=== PATIENT | female | born 1945 | race Caucasian/White ===

== ENCOUNTER 2016-08-23 21:41 | Inpatient (IN) | payer MEDICARE ==
--- NOTE | ~2016-08-23 | DS ---
Discharge Summary [id number] [place]. [address] NAME: DARRELL COLON : 41 STATUS : DIS IN PAT#: [id number] AGE: 70 ADM/REG DATE : 08/23/16 MR#: [id number] REPORT SERV DATE: 08/31/16 DICTATED BY: BERNARD GALVIN SCOT DATE: 08/30/16 REPORT STATUS : Draft TRANSCRIBED BY: MODL DATE: 08/30/16 ADMISSION DATE: 08/23/2016 DISCHARGE DATE: 08/30/2016 DISCHARGE DIAGNOSES: 1. Acute diastolic heart failure with ejection fraction of 50%. 2. Anemia of iron deficiency and a component of acute blood loss with history of recent uterine bleeding and recent hysteroscopy on 07/31/2016. 3. Bilateral pleural effusions, resolving. 4. Hypoxemia, nocturnal, likely obstructive sleep apnea. 5. Acute kidney injury on chronic kidney disease, resolving, most recent creatinine 1.54. 6. Diabetes type 2, hemoglobin A1c 8.4. 7. History of hypertension. 8. Recent cholecystectomy, also on 07/31/2016. DISCHARGE MEDICATIONS: Aspirin 81 mg daily, Coreg 6.25 mg p.o. twice a day, glipizide 10 mg p.o. twice a day at breakfast and supper, Glucophage 1000 mg p.o. with breakfast and supper, Imdur 30 mg daily, lisinopril 2.5 mg daily, Nexium 20 mg daily, MiraLAX one packet daily, potassium chloride sustained release 10 mEq daily, Demadex 10 mg p.o. daily, vitamin E, vitamin B one tablet [id number] daily, hydralazine 25 mg three times a day, Prolia 60 mg subcutaneously every six months. HISTORY OF PRESENT ILLNESS: A 70-year-old female who presented with swelling and high blood pressure. Please see the initial H and P of Dr. Manny Galaviz. The patient is admitted to the Hospitalist Service for further evaluation and treatment. The patient was initially started on aggressive IV diuresis. Lab work was ordered and followed. She was given medications to control her blood pressure. CONSULTANTS DURING THIS ADMISSION: Included Cardiology, Dr. Zepeda. PROCEDURES AND IMAGING DURING THIS ADMISSION: Include an overnight oximetry test showing severe nocturnal hypoxemia on room air. An echocardiogram showing an ejection fraction 50%, mild left ventricular diastolic dysfunction, mild right ventricular enlargement. Hepatic ultrasound showing gallbladder removed, common bile duct normal. Liver is mildly enlarged, otherwise normal,and small right pleural effusion noted HOSPITAL COURSE: The patient was as stated given aggressive IV diuresis with Bumex and her volume overload began to improve. She did have some difficulties with hypokalemia which was replaced as needed. She was found to be quite anemic as well on presentation secondary to her chronic uterine bleeding and in recent procedure. She was given approximately six days of IV iron infusions during this hospital admission as well and her H and H has slowly risen each day. She was started on Coreg and VIOLET inhibitor and has tolerated this addition okay. Her creatinine was followed closely and began to climb slightly on 08/27/2016 and her Bumex was discontinued the following day and lab work was followed closely as her creatinine did climb to 1.79. The did plateau to 1.56 and she was given 10 mg of torsemide which she will continue forward. Given the findings of the overnight oximetry, she was placed and Discharge Summary [address] [address] NAME: DARRELL COLON : 41 STATUS : DIS IN PAT#: [id number] AGE: 70 ADM/REG DATE : 08/23/16 MR#: [id number] REPORT SERV DATE: 08/31/16 DICTATED BY: BERNARD GALVIN DATE: 08/30/16 REPORT STATUS : Draft TRANSCRIBED BY: NORA DATE: 08/30/16 continued on oxygen and will have that at discharge as well. The patient continued to improve, was able to ambulate and mobilize in the room and heart failure education team has seen the patient during this hospitalization. Cardiology felt the patient safe for discharge as well, and she was discharged to home with home health on 08/30/2016 with the above medication regimen and prescriptions and home health, and she has been instructed to follow up with her primary care, Dr. Monsalve, in the next seven days to recheck some lab work including a BMP and CBC and further discuss her diabetic medicines as well. Her H and H upon discharge 7.7 and 27.4, creatinine 1.54. She has questions extensively answered at bedside with both patient and and they are in agreement. Please note, greater 30 minutes was spent on this discharge for medication teaching, followup planning, and further disposition. CSC/MODL Bernard Galvin NP / [id number] CC: Roderick Addison M.D.
--- NOTE | ~2016-08-23 | PUL ---
[facility] [address] [place]. [address] NAME: DARRELL COLON : 41 STATUS : ADM IN PAT#: [id number] AGE: 70 ADM/REG DATE : 08/23/16 MR#: [id number] REPORT SERV DATE: 08/28/16 DICTATED BY: CASH QUIROS IV DATE: 08/27/16 REPORT STATUS : Draft TRANSCRIBED BY: MODL DATE: 08/27/16 PULMONARY FUNCTION TEST OVERNIGHT OXIMETRY Study was performed initially on room air. The patient was placed on supplemental oxygen at 2 L because of persistently low oxygen saturations. 6 hours and 2 minutes of data are available for review. The mean oxygen saturation for the study was 94.9%. The lowest recorded saturation was 78% and this occurred prior to the initiation of supplemental oxygen. The patient spent 36 minutes and 20 seconds with oxygen saturations less than 88%. After supplemental oxygen was provided, there were transient periods of oxygen desaturations, which appeared to be secondary to motion artifact or poor pulse pickup while the patient is on supplemental oxygen. Prior to the initiation of supplemental oxygen, there were periods of oxygen saturation, variation of sawtooth pattern that varied by more than 4%. IMPRESSION: Severe nocturnal hypoxemia on room air. Prior to the initiation of supplemental oxygen, there was a background pattern that would be consistent with obstructive sleep apnea. This pattern appeared to disappear with the initiation of supplemental oxygen with the remainder of the desaturations appearing to be secondary to motion artifact or poor pulse pickup. I would suggest continued use of supplemental oxygen at 2 L/minute. I would suggest formal polysomnography if clinically indicated. HALEY/NORA Cash Quiros IV, M.D. / [id number] CC: MD Kit Pathak M.D.
--- NOTE | ~2016-08-23 | CN ---
Consultation Report [facility] [address] [place]. [address] NAME: DARRELL COLON : 41 STATUS : ADM IN [facility]#: [id number] AGE: 70 ADM/REG DATE : 08/23/16 MR#: [id number] REPORT SERV DATE: 08/25/16 DICTATED BY: TAO OTERO DATE: 08/25/16 REPORT STATUS : Draft TRANSCRIBED BY: MODL DATE: 08/25/16 CARDIOVASCULAR CONSULTATION DATE OF CONSULTATION: This cardiovascular consultation requested by Dr. Earl Frederick. INDICATION: Congestive heart failure. HISTORY OF PRESENT ILLNESS: Ms. Colon is a 70-year-old woman with a history of hypertension and type 2 diabetes. She underwent cholecystectomy several weeks ago. She is admitted to [facility] with worsening symptoms of dyspnea and volume overload and is found to be in acute congestive heart failure. BNP on initial presentation was almost 1500. The patient's dyspnea has somewhat improved over the last two days in the hospital. She still has significant edema. She has not had any chest pain. No prior cardiac history. No previous history congestive heart failure. PAST MEDICAL HISTORY: 1. Hypertension. 2. Type 2 diabetes. 3. Gastroesophageal reflux disease. 4. Status post recent cholecystectomy. 5. Status post D and C. SOCIAL HISTORY: She does not smoke or drink alcohol. FAMILY HISTORY: There is no family history of early coronary artery disease. ALLERGIES: INCLUDE MORPHINE. HOME MEDICATIONS: Aspirin 81 mg daily, Prolia, Nexium 20 mg daily, Glucotrol, glipizide, hydralazine 25 mg three times a day, Imdur 30 mg daily, Prinivil 10 mg twice a day, metformin. PHYSICAL EXAMINATION: VITAL SIGNS: Blood pressure 144/64, heart rate of 78, respiratory rate of 14. GENERAL: Comfortable in no acute distress. HEENT: Anicteric. No xanthelasma. Lips without cyanosis. NECK: No JVD. Carotids 2+ and symmetric. No carotid bruits. LUNGS: CTA bilaterally. No wheezes or rhonchi. No accessory muscle use. COR: RRR. Normally placed PMI. Normal S1 and S2. No murmurs, rubs or gallops. ABD: Soft, nontender, nondistended. Normal bowel sounds. No abdominal bruits. EXT: No clubbing, cyanosis or edema 2+ and symmetric distal pulses. SKIN: Warm. Dry. No venous stasis changes. Consultation Report [place] [address] [place]. [address] NAME: DARRELL COLON : 41 STATUS : ADM IN PAT#: [id number] AGE: 70 ADM/REG DATE : 08/23/16 MR#: [id number] REPORT SERV DATE: 08/25/16 DICTATED BY: TAO OTERO DATE: 08/25/16 REPORT STATUS : Draft TRANSCRIBED BY: NORA DATE: 08/25/16 MS: No kyphosis. NEURO/PSYCH: Oriented x3. No anxiety or depression. LABORATORY STUDIES: Creatinine of 1.1. Hematocrit of 7. BNP initially 1500. EKG: A 12-lead EKG shows the sinus rhythm, 89 beats per minute. Right bundle-branch block pattern noted. Nonspecific T-wave abnormalities noted. Echocardiogram by my personal review on 08/25/2016 shows low normal left ventricular systolic function with EF 50%. There is evidence of diastolic dysfunction. There was mild right-sided chamber enlargement. IMPRESSION: This is a 70-year-old woman with acute diastolic congestive heart failure as a new diagnosis. We will work on blood pressure control. I agree with IV diuresis. We will monitor electrolytes closely. BELINDA/NORA Tao Otero M.D. / [id number] CC: MD Kit Pathak M.D.
--- NOTE | ~2016-08-23 | HP ---
History And Physical [id number] [place]. [address] NAME: DARRELL COLON : 41 STATUS : ADM IN [facility]#: [id number] AGE: 70 ADM/REG DATE : 08/23/16 MR#: [id number] REPORT SERV DATE: 08/24/16 DICTATED BY: MANNY VILLA DATE: 08/23/16 REPORT STATUS : Draft TRANSCRIBED BY: MODL DATE: 08/23/16 DATE OF ADMISSION: 08/23/2016 CHIEF COMPLAINT: Swelling all over and high blood pressure. HISTORY OF PRESENT ILLNESS: This is a 70-year-old female, who was recently discharged from this hospital on 08/15/2016 after cholecystectomy and D and C done at the same time, returns to the emergency room at [facility] with the above- mentioned complaint. History is obtained from the patient, her who is at bedside, and reviewing data available on the [facility] system. According to Ms. Colon and her , after she went home on 08/15/2016 following the surgery mentioned above, she started having swelling in her body all over, especially both her lower extremities and abdominal area. She also had progressively worsening shortness of breath and dyspnea with exertion. In the last few days, her dyspnea with exertion was quite profound even with minimal exertion. They finally decided to come to the emergency room to be evaluated. In the emergency room, she had hypertensive urgency with a pressure of 201/83, volume overload with an elevated BNP, and also hyperglycemia. Her EKG showed normal sinus rhythm. Chest x-ray showed bilateral small pleural effusions. She was given clonidine, lisinopril, and Lasix in the ER, and Hospitalist Service is asked to admit her for further evaluation and treatment. At the time of my evaluation, she denied any chest pain, palpitations, or orthopnea. She had no cough productive of any sputum. Denied any hemoptysis, night sweats, or weight loss. She has had no falls or loss of consciousness. No recent history of fevers, chills, nausea, vomiting, diarrhea. She did have a history of recent hysteroscopy and D and C for dysfunctional uterine bleeding, but since then, she had been placed on Prolia, and her bleeding has stopped. She is being followed by Dr. Day. She has had no other history of hematemesis, hematochezia, or hematuria. No other history of recent travel or exposures other than those mentioned above. PAST MEDICAL HISTORY: Significant for history of dysfunctional uterine bleeding and chronic anemia, history of hysteroscopy and D and C done by Dr. Day, history of cholecystectomy for gangrenous cholecystitis both done recently, and the patient was discharged on 08/15/2016. The patient has history of hypertension, diabetes mellitus, hypercholesteremia, gastroesophageal reflux disease, chronic sinusitis. She also has chronic anemia as well. SOCIAL HISTORY: She does not smoke, drink, or use recreational drugs. FAMILY HISTORY: Noncontributory. MEDICATIONS: Her medications at home were reviewed by me in the chart today and reordered by me. History And Physical [address] [address] NAME: DARRELL COLON : 41 STATUS : ADM IN [facility]#: [id number] AGE: 70 ADM/REG DATE : 08/23/16 MR#: [id number] REPORT SERV DATE: 08/24/16 DICTATED BY: MANNY VILLA DATE: 08/23/16 REPORT STATUS : Draft TRANSCRIBED BY: NORA DATE: 08/23/16 REVIEW OF SYSTEMS: As in history of present illness. All other systems were reviewed in detail and quite unremarkable. PHYSICAL EXAMINATION: GENERAL: This is a pleasant 70-year-old, not in any acute distress. HEENT: Her head is atraumatic, normocephalic. She is alert, awake, oriented to time, place, and person. Pupils are equal, reacting to light and accommodating. External ocular muscles are intact. Membranes are moist and pink. Sclerae are nonicteric. NECK: Supple with no jugular venous distention, lymphadenopathy, or thyromegaly. LUNGS: Auscultation of her lungs revealed few crackles in the bases, otherwise without any expiratory wheezes. HEART: Auscultation of her heart revealed normal rate and rhythm with no murmurs, rubs, or gallops appreciated. ABDOMEN: Soft. There is edema. Bowel sounds present. No organomegaly. EXTREMITIES: Showed no cyanosis or clubbing. There is bilateral pitting lower extremity edema. NEUROLOGIC: Grossly intact. No focal sensory or motor deficits. She was able to move all four extremities. VITAL SIGNS: Her vital signs today showed a temperature of 98.3, pulse 86, respirations 24 a minute, blood pressure was 201/83, oxygen saturations were 97% on 2 L by nasal cannula. LABORATORY DATA: Reviewed on the [facility] system showed sodium of 141, potassium 4.1, chloride 104, and CO2 of 25. BUN was 16 with a creatinine of 1.16. Her blood glucose was 176. Troponin today was 0.02. BNP was elevated at 1456.3. CBC revealed a white blood cell count of 7600; hemoglobin was 7.4; hematocrit 26.0, this was 7.1 on 08/10/2016 and 24.4 on the same day. This has been stable for quite a while. Her MCV is 68.4 and platelet count is 328,000. Her PTT today was 40.6, prothrombin time was 15. INR was 0.8. Urinalysis was grossly unremarkable. Films of the chest x-ray were reviewed by me on the PACS today and interpreted by me. Per my interpretation, there is normal bony architecture with cardiomegaly. There are no lobar consolidations or infiltrates, but there are small bilateral pleural effusions seen. A 12-lead EKG done in emergency room was reviewed and interpreted by me. There is normal sinus rhythm with a rate of [address] changes. There is right bundle-branch block. Again, initially upon presentation, her blood pressure was 201/83. After interventions in the ER, it had come down to 189/69. IMPRESSION: 1. Hypertensive urgency. 2. Volume overload. 3. Diabetes mellitus with hyperglycemia. 4. Iron deficiency anemia secondary to dysfunctional uterine bleeding. 5. Gastroesophageal reflux disease. 6. Hypercholesterolemia. 7. Chronic sinusitis. 8. Right bundle-branch block. 9. Bilateral small pleural effusions. History And Physical [address] [address] NAME: DARRELL COLON : 41 STATUS : ADM IN [facility]#: [id number] AGE: 70 ADM/REG DATE : 08/23/16 MR#: [id number] REPORT SERV DATE: 08/24/16 DICTATED BY: MANNY VILLA DATE: 08/23/16 REPORT STATUS : Draft TRANSCRIBED BY: MODL DATE: 08/23/16 10.History of recent cholecystectomy and hysteroscopy with D and C. PLAN: We will admit Ms. Colon to the Hospitalist Service with telemetry for close monitoring. We will start her on IV diuretics, follow daily outputs, weights, and check an echocardiogram in the morning. We will also establish blood pressure control with intravenous hydralazine given on an as needed basis along with intravenous Bumex as well. She was given 0.2 mg of clonidine in the ER along with lisinopril 20 mg and Lasix IV. She has responded well and has had good output so far. For her blood sugar control, we will start her on NovoLog given subcutaneously per sliding scale and check her A1c as well. We will also check her TSH. She will be placed on unfractionated heparin for DVT prophylaxis while here. I have discussed the above plans with the patient and her . Questions were answered and they are agreeable to the above recommendations. Hospitalist Service will be following her during her stay here. /NORA Manny Villa M.D. / [id number] CC: Roderick Gong M.D.
[2016-08-23 17:25] LABS: BASOPHILS 0.5 %; BASOPHILS ABSOLUTE 0.04 10/3/uL (0.0-0.16); EOSINOPHILS 5.1 %; EOSINOPHILS ABSOLUTE 0.39 10/3/uL (0.0-0.53); ER CBC TAT 0 Hrs 07 Mins; HEMOGLOBIN 7.4 g/dL (12.0-16.0); IMMATURE GRANULOCYTES 0.4 %; IMMATURE GRANULOCYTES ABSOLUTE 0.03 10/3/uL (0.0-0.11); LYMPHOCYTES 19.5 %; LYMPHOCYTES ABSOLUTE 1.48 10/3/uL (0.67-4.30); MEAN CORPUS HGB CONC 28.5 g/dL (32.0-36.0); MEAN CORPUSCULAR HEMOGLOB 19.5 pg (26.0-34.0); MEAN CORPUSCULAR VOLUME 68.4 fL (80-100); MEAN PLATELET VOLUME 9.7 fL (9.2-13.0); MONOCYTES 11.1 %; MONOCYTES ABSOLUTE 0.84 10/3/uL (0.21-1.20); NEUTROPHILS 63.4 %; RBC DISTRIBUTION WIDTH 19.1 % (12.0-16.0); WHITE BLOOD CELLS 7.6 10/3/uL (4.5-10.5)
[2016-08-23 17:26] LABS: MANUAL DIFF NO %; PLATELET COUNT 328 10/3/uL (150-400)
[2016-08-23 17:31] LABS: INTERNATIONAL NORMAL RATI 1.2 UNITS (-)
[2016-08-23 17:32] LABS: PARTIAL THROMBO TIME 40.6 SEC (22.5-37.2)
[2016-08-23 17:43] LABS: BUN (BLOOD UREA NITROGEN) 16 MG/DL (6-23); CALCIUM, SERUM 8.5 MG/DL (8.5-10.4); CHEST PAIN PROFILE TAT 0 Hrs 25 Mins; CHLORIDE, SERUM 104 MMOL/L (96-112); CO2 (CARBON DIOXIDE) 25 MMOL/L (24-34); CREATININE 1.16 MG/DL (0.55-1.02); GFR AFRICAN AMERICAN 54 ML/MIN (>=60); GFR NON AFRICAN AMERICAN 47 ML/MIN (>=60); POTASSIUM, SERUM 4.1 MMOL/L (3.5-5.3); SODIUM, SERUM 141 MMOL/L (135-148); TROPONIN I <0.02 NG/ML (<0.05)
[2016-08-23 17:44] LABS: GLUCOSE, SERUM 176 MG/DL (60-99)
[2016-08-23 20:55] LABS: ASCORBIC ACID (UR NOT ORDER) NEG (NEG); BILIRUBIN, URINE NEGATIVE (NEG); ER URINALYSIS TAT 0 Hrs 25 Mins; KETONE, URINE NEGATIVE (NEG); LEUKOCYTE ESTERASE(NOT OR NEG (NEG); NITRITE (URINE) NEG (NEG); WBC (NOT ORDERED) (RFLEX) < 1 (0-5)
[2016-08-23 21:07] LABS: INFLUENZA A SCREEN NEGATIVE (NEGATIVE); INFLUENZA B SCREEN NEGATIVE (NEGATIVE)
[~2016-08-23 21:41] MED LIST: ACTOS30 PO; ALOE VERA CAPSULE PO; APRES25 PO; ASAB PO; BILBERRY PO; EYE BRIGHT PO; GLUCOPHAGE1000 MG PO; GLUCOTRO10 PO; GLUCPH PO; IMDUR30 PO; NEXIUM20 M1 PO; PCET PO; PRIN10 PO; PROLIA60 MG/1 ML; PROLIA60 MG/1 ML SC; SODBICAR10 PO; VITAMIN B PO; VITAMIN E CAPSULE PO
[2016-08-24 04:46] LABS: BASOPHILS 0.3 %; BASOPHILS ABSOLUTE 0.02 10/3/uL (0.0-0.16); EOSINOPHILS ABSOLUTE 0.37 10/3/uL (0.0-0.53); HEMATOCRIT 24.8 % (36.0-48.0); HEMOGLOBIN 7.2 g/dL (12.0-16.0); IMMATURE GRANULOCYTES 0.1 %; IMMATURE GRANULOCYTES ABSOLUTE 0.01 10/3/uL (0.0-0.11); LYMPHOCYTES 21.2 %; LYMPHOCYTES ABSOLUTE 1.57 10/3/uL (0.67-4.30); MEAN CORPUSCULAR HEMOGLOB 19.5 pg (26.0-34.0); MEAN PLATELET VOLUME 10.5 fL (9.2-13.0); MONOCYTES 10.4 %; MONOCYTES ABSOLUTE 0.77 10/3/uL (0.21-1.20); NEUTROPHILS ABSOLUTE 4.67 10/3/uL (2.02-8.40); PLATELET COUNT 330 10/3/uL (150-400); RBC DISTRIBUTION WIDTH 19.2 % (12.0-16.0); WHITE BLOOD CELLS 7.4 10/3/uL (4.5-10.5)
[2016-08-24 04:55] LABS: MANUAL DIFF NO %
[2016-08-24 04:57] LABS: BUN (BLOOD UREA NITROGEN) 13 MG/DL (6-23); CALCIUM, SERUM 8.6 MG/DL (8.5-10.4); CHLORIDE, SERUM 103 MMOL/L (96-112); CO2 (CARBON DIOXIDE) 26 MMOL/L (24-34); CREATININE 1.01 MG/DL (0.55-1.02); GFR AFRICAN AMERICAN 64 ML/MIN (>=60); GFR NON AFRICAN AMERICAN 56 ML/MIN (>=60); PHOSPHORUS, SERUM 3.3 MG/DL (2.5-4.5); SODIUM, SERUM 141 MMOL/L (135-148)
[2016-08-24 04:59] LABS: GLUCOSE, SERUM 96 MG/DL (60-99); POTASSIUM, SERUM 3.1 MMOL/L (3.5-5.3)
[2016-08-24 05:04] LABS: B NATRIURETIC PEPTIDE (BNP) 1382.6 PG/ML (< 100.0)
[2016-08-24 06:15] LABS: HYPOCHROMIA 3+ (>30/OIF) (0-2/OIF); PLATELET ESTIMATE ADQ (ADEQUATE)
[2016-08-24 08:09] LABS: GLYCOHEMOGLOBIN (HbA1c) 8.4 % (4.7-6.1)
[2016-08-25 05:30] LABS: ALBUMIN 2.7 G/DL (3.5-5.0); BUN (BLOOD UREA NITROGEN) 15 MG/DL (6-23); CHLORIDE, SERUM 100 MMOL/L (96-112); CO2 (CARBON DIOXIDE) 28 MMOL/L (24-34); CREATININE 1.17 MG/DL (0.55-1.02); GFR AFRICAN AMERICAN 54 ML/MIN (>=60); GFR NON AFRICAN AMERICAN 47 ML/MIN (>=60); PHOSPHORUS, SERUM 3.1 MG/DL (2.5-4.5); POTASSIUM, SERUM 3.6 MMOL/L (3.5-5.3); SODIUM, SERUM 139 MMOL/L (135-148)
[2016-08-25 05:34] LABS: GLUCOSE, SERUM 131 MG/DL (60-99)
[2016-08-25 06:29] LABS: BASOPHILS 0.9 %; BASOPHILS ABSOLUTE 0.06 10/3/uL (0.0-0.16); EOSINOPHILS 6.6 %; EOSINOPHILS ABSOLUTE 0.45 10/3/uL (0.0-0.53); HEMATOCRIT 23.9 % (36.0-48.0); IMMATURE GRANULOCYTES 0.1 %; IMMATURE GRANULOCYTES ABSOLUTE 0.01 10/3/uL (0.0-0.11); LYMPHOCYTES 20.1 %; LYMPHOCYTES ABSOLUTE 1.37 10/3/uL (0.67-4.30); MEAN CORPUS HGB CONC 29.3 g/dL (32.0-36.0); MEAN CORPUSCULAR HEMOGLOB 19.8 pg (26.0-34.0); MEAN CORPUSCULAR VOLUME 67.7 fL (80-100); MEAN PLATELET VOLUME 10.4 fL (9.2-13.0); MONOCYTES 10.9 %; MONOCYTES ABSOLUTE 0.74 10/3/uL (0.21-1.20); NEUTROPHILS 61.4 %; NEUTROPHILS ABSOLUTE 4.17 10/3/uL (2.02-8.40); PLATELET COUNT 296 10/3/uL (150-400); RBC DISTRIBUTION WIDTH 19.3 % (12.0-16.0); RED CELL COUNT 3.53 10/6/uL (4.0-5.6); WHITE BLOOD CELLS 6.8 10/3/uL (4.5-10.5)
[2016-08-25 06:30] LABS: MANUAL DIFF NO %
[2016-08-25 07:33] LABS: ANISOCYTOSIS 1+ (5-10/OIF) (0-5/OIF); PLATELET ESTIMATE ADQ (ADEQUATE)
[2016-08-25 21:25] LABS: CALCIUM, SERUM 8.4 MG/DL (8.5-10.4); CHLORIDE, SERUM 101 MMOL/L (96-112); CO2 (CARBON DIOXIDE) 29 MMOL/L (24-34); CREATININE 1.38 MG/DL (0.55-1.02); GFR AFRICAN AMERICAN 44 ML/MIN (>=60); GFR NON AFRICAN AMERICAN 38 ML/MIN (>=60); GLUCOSE, SERUM 117 MG/DL (60-99); POTASSIUM, SERUM 3.8 MMOL/L (3.5-5.3); SODIUM, SERUM 139 MMOL/L (135-148)
[2016-08-25 21:26] LABS: BUN (BLOOD UREA NITROGEN) 21 MG/DL (6-23)
[2016-08-26 07:32] LABS: BASOPHILS 0.9 %; BASOPHILS ABSOLUTE 0.08 10/3/uL (0.0-0.16); EOSINOPHILS 4.4 %; HEMATOCRIT 23.6 % (36.0-48.0); IMMATURE GRANULOCYTES 0.7 %; IMMATURE GRANULOCYTES ABSOLUTE 0.06 10/3/uL (0.0-0.11); LYMPHOCYTES 18.7 %; LYMPHOCYTES ABSOLUTE 1.71 10/3/uL (0.67-4.30); MEAN CORPUS HGB CONC 29.7 g/dL (32.0-36.0); MEAN CORPUSCULAR HEMOGLOB 20.2 pg (26.0-34.0); MEAN CORPUSCULAR VOLUME 68.2 fL (80-100); MEAN PLATELET VOLUME 10.6 fL (9.2-13.0); MONOCYTES 9.1 %; MONOCYTES ABSOLUTE 0.83 10/3/uL (0.21-1.20); NEUTROPHILS 66.2 %; NEUTROPHILS ABSOLUTE 6.07 10/3/uL (2.02-8.40); NUCLEATED RED BLOOD CELLS 0.6 /100WBC (0-0); PLATELET COUNT 307 10/3/uL (150-400); RBC DISTRIBUTION WIDTH 19.4 % (12.0-16.0); RED CELL COUNT 3.46 10/6/uL (4.0-5.6); WHITE BLOOD CELLS 9.2 10/3/uL (4.5-10.5)
[2016-08-26 07:34] LABS: MANUAL DIFF NO %
[2016-08-26 07:40] LABS: ALBUMIN 2.7 G/DL (3.5-5.0); ALKALINE PHOSPHATASE 610 U/L (45-117); BUN (BLOOD UREA NITROGEN) 25 MG/DL (6-23); CALCIUM, SERUM 8.5 MG/DL (8.5-10.4); CHLORIDE, SERUM 101 MMOL/L (96-112); CO2 (CARBON DIOXIDE) 29 MMOL/L (24-34); DIRECT BILIRUBIN 0.5 MG/DL (0.0-0.4); GFR AFRICAN AMERICAN 47 ML/MIN (>=60); GFR NON AFRICAN AMERICAN 41 ML/MIN (>=60); GLUCOSE, SERUM 78 MG/DL (60-99); INDIRECT BILIRUBIN(NOT ORDER) 0.4 MG/DL (0.1-0.9); POTASSIUM, SERUM 3.6 MMOL/L (3.5-5.3); SGOT(AST) 91 U/L (5-40); SGPT(ALT) 64 U/L (5-65); SODIUM, SERUM 139 MMOL/L (135-148); TOTAL BILIRUBIN 0.9 MG/DL (0-1.2); TOTAL PROTEIN 6.3 G/DL (6.0-8.5)
[2016-08-26 07:54] LABS: PLATELET ESTIMATE ADQ (ADEQUATE)
[2016-08-26 07:55] LABS: ANISOCYTOSIS 1+ (5-10/OIF) (0-5/OIF); POLYCHROMASIA 1+ (2-5/OIF) (0-1/OIF)
[2016-08-26 10:49] LABS: GAMMA GT 743 U/L (5-85)
[2016-08-27 08:39] LABS: BASOPHILS 0.8 %; BASOPHILS ABSOLUTE 0.06 10/3/uL (0.0-0.16); EOSINOPHILS 5.8 %; EOSINOPHILS ABSOLUTE 0.46 10/3/uL (0.0-0.53); HEMATOCRIT 24.7 % (36.0-48.0); HEMOGLOBIN 7.2 g/dL (12.0-16.0); IMMATURE GRANULOCYTES 0.5 %; IMMATURE GRANULOCYTES ABSOLUTE 0.04 10/3/uL (0.0-0.11); LYMPHOCYTES 20.4 %; LYMPHOCYTES ABSOLUTE 1.63 10/3/uL (0.67-4.30); MEAN CORPUS HGB CONC 29.1 g/dL (32.0-36.0); MEAN CORPUSCULAR HEMOGLOB 20.5 pg (26.0-34.0); MEAN CORPUSCULAR VOLUME 70.2 fL (80-100); MEAN PLATELET VOLUME 10.1 fL (9.2-13.0); MONOCYTES 9.8 %; MONOCYTES ABSOLUTE 0.78 10/3/uL (0.21-1.20); NEUTROPHILS 62.7 %; NEUTROPHILS ABSOLUTE 5.03 10/3/uL (2.02-8.40); PLATELET COUNT 300 10/3/uL (150-400); RBC DISTRIBUTION WIDTH 19.6 % (12.0-16.0); RED CELL COUNT 3.52 10/6/uL (4.0-5.6)
[2016-08-27 08:41] LABS: MANUAL DIFF NO %
[2016-08-27 08:54] LABS: A/G RATIO 0.8 (0.7-1.9); ALBUMIN 2.8 G/DL (3.5-5.0); ALKALINE PHOSPHATASE 642 U/L (45-117); BUN (BLOOD UREA NITROGEN) 28 MG/DL (6-23); CALCIUM, SERUM 8.4 MG/DL (8.5-10.4); CHLORIDE, SERUM 97 MMOL/L (96-112); CO2 (CARBON DIOXIDE) 31 MMOL/L (24-34); CREATININE 1.54 MG/DL (0.55-1.02); GFR AFRICAN AMERICAN 39 ML/MIN (>=60); GFR NON AFRICAN AMERICAN 33 ML/MIN (>=60); GLOBULIN 3.4 G/DL (2.5-4.1); GLUCOSE, SERUM 111 MG/DL (60-99); POTASSIUM, SERUM 3.7 MMOL/L (3.5-5.3); SGOT(AST) 95 U/L (5-40); SGPT(ALT) 70 U/L (5-65); SODIUM, SERUM 138 MMOL/L (135-148); TOTAL BILIRUBIN 1.2 MG/DL (0-1.2); TOTAL PROTEIN 6.2 G/DL (6.0-8.5)
[2016-08-27 08:55] LABS: HEPATITIS B SURFACE ANTIGEN NON-REACTIVE (NON-REACT)
[2016-08-27 09:11] LABS: ANISOCYTOSIS 1+ (5-10/OIF) (0-5/OIF); PLATELET ESTIMATE ADQ (ADEQUATE); POLYCHROMASIA 1+ (2-5/OIF) (0-1/OIF)
[2016-08-27 09:12] LABS: POIKILOCYTOSIS 1+ (5-10/OIF) (0-5/OIF); TARGET CELLS FEW (3-10/OIF) (0-1/OIF)
[2016-08-27 09:14] LABS: HEPATITIS C ANTIBODY NON-REACTIVE (NON-REACT)
[2016-08-27 09:15] LABS: HEPATITIS B CORE AB IGM NON-REACTIVE (NON-REAC)
[2016-08-27 09:16] LABS: HEP A ANTIBODY IGM NON-REACTIVE (NON-REACT)
[2016-08-27 10:52] LABS: PHOSPHORUS, SERUM 3.6 MG/DL (2.5-4.5)
[2016-08-28 04:35] LABS: BASOPHILS ABSOLUTE 0.08 10/3/uL (0.0-0.16); EOSINOPHILS 5.5 %; EOSINOPHILS ABSOLUTE 0.45 10/3/uL (0.0-0.53); HEMATOCRIT 26.1 % (36.0-48.0); HEMOGLOBIN 7.3 g/dL (12.0-16.0); IMMATURE GRANULOCYTES ABSOLUTE 0.08 10/3/uL (0.0-0.11); LYMPHOCYTES 24.3 %; MEAN CORPUSCULAR HEMOGLOB 20.1 pg (26.0-34.0); MEAN CORPUSCULAR VOLUME 71.9 fL (80-100); MONOCYTES 10.5 %; MONOCYTES ABSOLUTE 0.86 10/3/uL (0.21-1.20); NEUTROPHILS 57.7 %; NEUTROPHILS ABSOLUTE 4.75 10/3/uL (2.02-8.40); PLATELET COUNT 322 10/3/uL (150-400); RBC DISTRIBUTION WIDTH 21.6 % (12.0-16.0); RED CELL COUNT 3.63 10/6/uL (4.0-5.6); WHITE BLOOD CELLS 8.2 10/3/uL (4.5-10.5)
[2016-08-28 04:36] LABS: CALCIUM, SERUM 8.4 MG/DL (8.5-10.4); CHLORIDE, SERUM 98 MMOL/L (96-112); CO2 (CARBON DIOXIDE) 30 MMOL/L (24-34); CREATININE 1.79 MG/DL (0.55-1.02); GFR AFRICAN AMERICAN 32 ML/MIN (>=60); GFR NON AFRICAN AMERICAN 28 ML/MIN (>=60); MANUAL DIFF NO %; SODIUM, SERUM 139 MMOL/L (135-148)
[2016-08-28 04:37] LABS: BUN (BLOOD UREA NITROGEN) 34 MG/DL (6-23); GLUCOSE, SERUM 181 MG/DL (60-99); POTASSIUM, SERUM 4.7 MMOL/L (3.5-5.3)
[2016-08-28 05:04] LABS: PLATELET ESTIMATE ADQ (ADEQUATE); POLYCHROMASIA 1+ (2-5/OIF) (0-1/OIF)
[2016-08-29 06:44] LABS: A/G RATIO 0.7 (0.7-1.9); ALBUMIN 2.8 G/DL (3.5-5.0); BUN (BLOOD UREA NITROGEN) 33 MG/DL (6-23); CALCIUM, SERUM 8.9 MG/DL (8.5-10.4); CHLORIDE, SERUM 97 MMOL/L (96-112); CO2 (CARBON DIOXIDE) 32 MMOL/L (24-34); CREATININE 1.56 MG/DL (0.55-1.02); GFR AFRICAN AMERICAN 38 ML/MIN (>=60); GFR NON AFRICAN AMERICAN 33 ML/MIN (>=60); GLOBULIN 3.9 G/DL (2.5-4.1); POTASSIUM, SERUM 4.4 MMOL/L (3.5-5.3); SGOT(AST) 112 U/L (5-40); SGPT(ALT) 106 U/L (5-65); SODIUM, SERUM 137 MMOL/L (135-148); TOTAL PROTEIN 6.7 G/DL (6.0-8.5)
[2016-08-29 06:48] LABS: BASOPHILS 0.7 %; BASOPHILS ABSOLUTE 0.07 10/3/uL (0.0-0.16); EOSINOPHILS 4.1 %; HEMATOCRIT 26.9 % (36.0-48.0); HEMOGLOBIN 7.6 g/dL (12.0-16.0); LYMPHOCYTES 25.1 %; LYMPHOCYTES ABSOLUTE 2.43 10/3/uL (0.67-4.30); MEAN CORPUS HGB CONC 28.3 g/dL (32.0-36.0); MEAN CORPUSCULAR HEMOGLOB 20.6 pg (26.0-34.0); MEAN CORPUSCULAR VOLUME 72.9 fL (80-100); MEAN PLATELET VOLUME 10.8 fL (9.2-13.0); MONOCYTES 9.3 %; NEUTROPHILS 59.8 %; NEUTROPHILS ABSOLUTE 5.78 10/3/uL (2.02-8.40); PLATELET COUNT 351 10/3/uL (150-400); RED CELL COUNT 3.69 10/6/uL (4.0-5.6); WHITE BLOOD CELLS 9.7 10/3/uL (4.5-10.5)
[2016-08-29 06:49] LABS: ALKALINE PHOSPHATASE 696 U/L (45-117); GLUCOSE, SERUM 141 MG/DL (60-99); TOTAL BILIRUBIN 1.8 MG/DL (0-1.2)
[2016-08-29 06:50] LABS: MANUAL DIFF NO %
[2016-08-29 07:09] LABS: PLATELET ESTIMATE ADQ (ADEQUATE)
[2016-08-29 07:10] LABS: HYPOCHROMIA 3+ (>30/OIF) (0-2/OIF)
[2016-08-29 07:11] LABS: POIKILOCYTOSIS 1+ (5-10/OIF) (0-5/OIF); POLYCHROMASIA 1+ (2-5/OIF) (0-1/OIF); SCHISTOCYTES OCC (0-2/OIF)
[2016-08-30 04:52] LABS: HEMATOCRIT 27.4 % (36.0-48.0); HEMOGLOBIN 7.7 g/dL (12.0-16.0); MEAN CORPUS HGB CONC 28.1 g/dL (32.0-36.0); MEAN CORPUSCULAR VOLUME 74.7 fL (80-100); MEAN PLATELET VOLUME 11.2 fL (9.2-13.0); PLATELET COUNT 387 10/3/uL (150-400); RBC DISTRIBUTION WIDTH 24.5 % (12.0-16.0); RED CELL COUNT 3.67 10/6/uL (4.0-5.6); WHITE BLOOD CELLS 10.1 10/3/uL (4.5-10.5)
[2016-08-30 04:54] LABS: MANUAL DIFF YES %
[2016-08-30 05:00] LABS: BUN (BLOOD UREA NITROGEN) 36 MG/DL (6-23); CALCIUM, SERUM 8.9 MG/DL (8.5-10.4); CHLORIDE, SERUM 99 MMOL/L (96-112); CO2 (CARBON DIOXIDE) 30 MMOL/L (24-34); CREATININE 1.54 MG/DL (0.55-1.02); GFR AFRICAN AMERICAN 39 ML/MIN (>=60); GFR NON AFRICAN AMERICAN 33 ML/MIN (>=60); GLUCOSE, SERUM 131 MG/DL (60-99); POTASSIUM, SERUM 4.6 MMOL/L (3.5-5.3); SODIUM, SERUM 137 MMOL/L (135-148)
[2016-08-30 05:37] LABS: ANISOCYTOSIS 4+ (>50/OIF) (0-5/OIF); BAND NEUTROPHILS 2 %; BASOPHILS 4 %; EOSINOPHILS 4 %; HYPOCHROMIA 3+ (>30/OIF) (0-2/OIF); LYMPHOCYTES 25 %; LYMPHOCYTES ABSOLUTE (CALC) 2.53 10/3/uL (0.67-4.30); MONOCYTES 2 %; NEUTROPHILS ABSOLUTE (CALC) 6.57 10/3/uL (2.02-8.40); PLATELET ESTIMATE ADQ (ADEQUATE); POLYCHROMASIA 1+ (2-5/OIF) (0-1/OIF); SEGMENTED NEUTROPHIL (0) 63 %; TOTAL NUCLEATED CELLS 100
[2016-08-30 05:38] LABS: STOMATOCYTES 1+ (3-10/OIF) (0-2/OIF)
[2016-08-30] MEDS ORDERED: COREG6 PO (13:49)
[2016-08-30] MEDS ORDERED: PRIN2.5 PO (13:50)
[2016-08-30] MEDS ORDERED: KLOR-CON 1010 MEQ PO (13:51)
[2016-08-30] MEDS ORDERED: MIRALAX POWDER1 PKT PO (13:51)
[2016-08-30] MEDS ORDERED: DEMA10T PO (13:51)
[2016-08-30] MEDS ORDERED: FERROUS SULF325 M1 PO (13:55)
== END 2016-08-30 16:45 | disposition home health service (06) | DRG 291 ==
LOC: ER 21:41 → 6NO 22:32
PROVIDERS: Emergency Medicine; Hospitalist; Internal Medicine Cardiovascular Disease; Internal Medicine Pulmonary Disease; Nurse Practitioner; Nurse Practitioner Family
DX: I13.0 Hypertensive heart and chronic kidney disease with heart failure and stage 1 through stage 4 chronic kidney disease, or unspecified chronic kidney disease (principal); I50.31 Acute diastolic (congestive) heart failure; N17.9 Acute kidney failure, unspecified; E11.65 Type 2 diabetes mellitus with hyperglycemia; E11.22 Type 2 diabetes mellitus with diabetic chronic kidney disease; D62 Acute posthemorrhagic anemia; I16.0 Hypertensive urgency; E87.6 Hypokalemia; E78.00 Pure hypercholesterolemia, unspecified; G47.33 Obstructive sleep apnea (adult) (pediatric); K21.9 Gastro-esophageal reflux disease without esophagitis; R09.02 Hypoxemia; I45.10 Unspecified right bundle-branch block; J32.8 Other chronic sinusitis; T50.905A Adverse effect of unspecified drugs, medicaments and biological substances, initial encounter; N18.3 Chronic kidney disease, stage 3 (moderate); Z79.84 Long term (current) use of oral hypoglycemic drugs; Z88.5 Allergy status to narcotic agent; Z79.82 Long term (current) use of aspirin; Z90.49 Acquired absence of other specified parts of digestive tract
CPT/HCPCS: 71020; 76705; 80048; 80053; 80069; 80074; 80076; 81001; 82962; 82977; 83036; 83735; 83880; 84100; 84443; 84484; 85025; 85610; 85730; 87804; 93005; 94762; 96374; 99285; A9270-GY; C8929; J0360; J2916; Q9957